=== PATIENT | male | born 1985 | race Caucasian/White ===

== ENCOUNTER 2016-12-29 14:21 | Emergency (ER) | payer OTHER ==
[~2016-12-29] VITALS: Ht 172.7 cm; Wt 85.4 kg
[2016-12-29] MEDS ORDERED: IBUPROFEN 800 MG TAB PO ONE (15:15)
--- NOTE | 2016-12-29 16:01 | REP ---
HISTORY: Pain. No trauma. COMPARISON: None. FINDINGS: Three views of the shoulder were performed. The acromioclavicular and glenohumeral relationships are within normal limits. There is no acute fracture or destructive osseous lesion. Signed by Hever Barroso DO 12/29/2016 04:04 P
--- NOTE | 2016-12-29 16:06 | REP ---
HISTORY: Trauma with upper extremity radicular symptoms. COMPARISON: None. FINDINGS: Seven views of the cervical spine show no acute fracture, dislocation or subluxation. The intervertebral disc spaces are symmetric and well maintained. The facet joints are well aligned bilaterally. The intervertebral foramina are patent bilaterally and the neural canal is not encroached upon. There is no destructive osseous lesion. Flexion and extension does not appear to be particularly limited radiographically. The anterior spinal soft tissues appear unremarkable. Although this plain radiographic evaluation of the cervical spine shows no evidence of a fracture, it should be remembered that CT is much more sensitive than plain radiography of the C-spine in detecting fractures. If this examination was ordered to rule out a fracture, then CT of the cervical spine is recommended. IMPRESSION: Unremarkable cervical spine series. Signed by Hever Barroso DO 12/29/2016 04:08 P
[2016-12-29 16:18] VITALS: BP 125/73
[2016-12-29] MEDS ORDERED: NAPR500T PO (16:30)
== END 2016-12-29 16:48 | disposition home or self-care (01) ==
LOC: M ED 15:20
DX: S43.422A Sprain of left rotator cuff capsule, initial encounter (principal); F31.9 Bipolar disorder, unspecified; F17.210 Nicotine dependence, cigarettes, uncomplicated; M51.36 Other intervertebral disc degeneration, lumbar region; X58.XXXA Exposure to other specified factors, initial encounter; Y92.9 Unspecified place or not applicable; Y99.9 Unspecified external cause status; Y93.9 Activity, unspecified